=== PATIENT | female | born 1985 | race Caucasian/White ===

== ENCOUNTER 2023-12-27 05:56 | Emergency (ER) | payer MEDICAID | END 2023-12-27 07:25 | disposition home or self-care (01) | LOC: LL.ED 05:56 | DX: J06.9 Acute upper respiratory infection, unspecified (principal) | CPT/HCPCS: 36415; 84703; 99283; U0002 ==

== ENCOUNTER 2024-01-08 03:59 | Emergency (ER) | payer MEDICAID ==
[2024-01-08] MEDS: Ketorolac 30 MG/ML SDV IM ONE (04:50)
[2024-01-08] MEDS: Orphenadrine 60 MG/2 ML Inj IM ONE (04:50)
[2024-01-08 05:21] VITALS: BP 133/73; PULSE 76
== END 2024-01-08 05:10 | disposition home or self-care (01) ==
LOC: LL.ED 03:59
DX: M54.50 Low back pain, unspecified (principal); Z79.899 Other long term (current) drug therapy; V80.010A Animal-rider injured by fall from or being thrown from horse in noncollision accident, initial encounter; Y93.52 Activity, horseback riding
CPT/HCPCS: 72100; 96372; 99283; J1885; J2360